=== PATIENT | male | born 1970 | race Caucasian/White ===

== ENCOUNTER 2021-04-07 08:12 | Emergency (ER) | payer OTHER ==
[2021-04-07 10:03] LABS: HEMOGLOBIN 15.8 gm/dl (14.0-17.5); RED BLOOD COUNT 4.95 M/UL (4.20-5.50); WHITE BLOOD COUNT 11.8 K/UL (4.5-11.0)
[2021-04-07 10:22] LABS: BUN/CREATININE RATIO 11 (0-10)
== END 2021-04-07 19:00 | disposition short-term general hospital (02) ==
LOC: ER1 08:12
PROVIDERS: Physician Assistant Medical
DX: S61.211A Laceration without foreign body of left index finger without damage to nail, initial encounter (principal); R45.851 Suicidal ideations; Z23 Encounter for immunization; F17.210 Nicotine dependence, cigarettes, uncomplicated; W23.0XXA Caught, crushed, jammed, or pinched between moving objects, initial encounter
CPT/HCPCS: 12001; 73130; 80053; 80307; 85025; 90715; 99284; G0480; U0002

== ENCOUNTER 2021-10-22 16:10 | Emergency (ER) | payer OTHER ==
[2021-10-22 19:15] LABS: HEMOGLOBIN 14.5 gm/dl (14.0-17.5); RED BLOOD COUNT 4.51 M/UL (4.20-5.50); WHITE BLOOD COUNT 12.1 K/UL (4.5-11.0)
[2021-10-22 19:24] LABS: BUN/CREATININE RATIO 12 (0-10)
[2021-10-22] MEDS ORDERED: NORFLEX 100 MG100 MG PO (20:15)
[2021-10-22] MEDS ORDERED: IBUPROFEN600 MG PO (20:15)
== END 2021-10-22 20:30 | disposition home or self-care (01) ==
LOC: ER1 16:10
PROVIDERS: Physician Assistant
DX: S16.1XXA Strain of muscle, fascia and tendon at neck level, initial encounter (principal); E11.9 Type 2 diabetes mellitus without complications; E78.5 Hyperlipidemia, unspecified; I10 Essential (primary) hypertension; Z90.49 Acquired absence of other specified parts of digestive tract; F17.210 Nicotine dependence, cigarettes, uncomplicated; X50.9XXA Other and unspecified overexertion or strenuous movements or postures, initial encounter; Y99.0 Civilian activity done for income or pay
CPT/HCPCS: 72125; 72128; 80053; 85025; 85652; 86140; 96374; 99284; J1885